=== PATIENT | male | born 1990 | race Two or more races ===

== ENCOUNTER 2017-03-21 15:08 | Emergency (ER) | payer OTHER ==
[2017-03-21 15:14] VITALS: RESP 16
[2017-03-21] MEDS ORDERED: LET GEL TOPICAL 1 EA SYR TP ONE (15:30)
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
[2017-03-21 16:48] VITALS: BP 136/91; PULSE 60; TEMP 97.9; O2SAT 97
== END 2017-03-21 16:45 | disposition home or self-care (01) ==
DX: S69.91XA Unspecified injury of right wrist, hand and finger(s), initial encounter (principal); S50.812A Abrasion of left forearm, initial encounter; F17.200 Nicotine dependence, unspecified, uncomplicated; V18.0XXA Pedal cycle driver injured in noncollision transport accident in nontraffic accident, initial encounter; Y92.410 Unspecified street and highway as the place of occurrence of the external cause; Y99.8 Other external cause status; Y93.55 Activity, bike riding
CPT/HCPCS: L3807